=== PATIENT | male | born 1950 | race Caucasian/White ===

== ENCOUNTER 2022-03-01 16:13 | Emergency (ER) | payer MEDICARE, SELFPAY ==
--- NOTE | ~2022-03-01 | XR_ITS ---
EXAMINATION: XR wrist RT min 3V INDICATION: Right wrist pain and swelling TECHNIQUE: Four views of the right wrist are obtained. COMPARISON: None available FINDINGS: There is plate and screw fixation of the distal radius. There appears to be an acute obliqu e, nondisplaced fracture of the radial styloid. 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 There is soft tissue swelling of the wrist. IMPRESSION: 1. Probable acute nondisplaced fracture of the radial styloid. Reviewed, dictated and finalized at location [facility]
--- NOTE | 2022-03-01 16:18 | ED.UPPEXIN ---
HPI - Extremity Injury (Upper) General Chief Complaint: Extremity Injury, Upper Stated Complaint: right wrist injury Time Seen by Provider: 03/01/22 16:40 Source: patient, RN notes reviewed and old records reviewed Mode of arrival: ambulatory Limitations: no limitations History of Present Illness HPI narrative: 71-year-old male presents to the [facility] with right wrist pain. Has a history of a fixation of the distal radius due to a fracture. Patient states that he was feeling his tires with air when he fell forward on Monday, 2 days ago. Has had bruising, pain and swelling. Tenderness to the dorsal aspect right wrist. Swelling noted to the entire wrist Bruising noted to the volar aspect, patient is on Xarelto. Primary and orthopedic surgeon is located [facility]. Related Data Home Medications Medication Instructions Recorded Confirmed allopurinol 100 mg tablet mg 03/01/22 bupropion HCl 300 mg 24 hr tablet, mg PO 03/01/22 extended release calcitriol 0.25 mcg capsule mcg 03/01/22 cyclosporine 0.05 % eye drops in a drp 03/01/22 dropperette (Restasis) ezetimibe 10 mg tablet mg 03/01/22 irbesartan 300 mg tablet mg 03/01/22 metoprolol succinate 25 mg mg PO 03/01/22 tablet,extended release 24 hr mycophenolate sodium 180 mg mg PO 03/01/22 tablet,delayed release nitroglycerin 0.4 mg sublingual mg 03/01/22 tablet propafenone 150 mg tablet mg 03/01/22 propafenone 150 mg tablet mg 03/01/22 rivaroxaban 15 mg tablet (Xarelto) mg 03/01/22 rosuvastatin 40 mg tablet mg 03/01/22 sulfamethoxazole 400 tablet 03/01/22 mg-trimethoprim 80 mg tablet tacrolimus 0.5 mg capsule, mg 03/01/22 immediate-release tacrolimus 1 mg capsule, mg 03/01/22 immediate-release tamsulosin 0.4 mg capsule mg PO 03/01/22 Allergies Allergy/AdvReac Type Severity Reaction Status Date / Time Penicillins Allergy Mild Rash Unverified 03/01/22 16:16 Review of Systems Review of Systems: All systems reviewed & are unremarkable except as noted in HPI and below Constitutional: Constitutional: Reports no additional constitutional complaints Eyes: Eyes: Reports no additional eye complaints ENT: Reports system reviewed and no additional complaints, except as documented Cardiovascular: Cardiovascular: Reports no additional cardiovascular complaints, Denies chest pain and Denies dyspnea Respiratory: Respiratory: Reports no additional respiratory complaints, Denies chest congestion, Denies cough and Denies dyspnea Gastrointestinal: Gastrointestinal: Reports no additional gastrointestinal complaints, Denies abdominal pain, Denies nausea and Denies vomiting Musculoskeletal: Musculoskeletal: Reports as per HPI, Reports arthralgias (Right wrist) and Reports joint swelling (Right wrist) Integumentary/Breasts: Skin/Breast: Reports system reviewed and no additional complaints, except as docu Neurologic: Reports system reviewed and no additional complaints, except as documented Psychiatric: Psychiatric: Reports no additional psychiatric complaints Allergic/Immunologic: Allergic/Immunologic: Reports no additional allergic/immunologic complaints PMFSH Surgical History Surgical History History of kidney transplant Comments At the time of my signature, I reviewed and agree with the nursing past medical, surgical, social, and family history. There is no relevant family history pertinent to the patient complaint. Exam Const: General: cooperative, healthy appearing, comfortable, no acute distress, well developed, alert and well nourished Nutritional Appearance: well nourished and obese Orientation/consciousness: patient oriented x3 Limitations: no limitations HENMT: Head: normal to inspection Ears: hearing grossly normal bilaterally and external ears normal Face/Nose/Sinus: Normal external nose present, Normal nares present, Normal nasal mucous membranes and turbinate
[2022-03-01 16:21] VITALS: BP 166/86; PULSE 81; RESP 20; TEMP 37.2; O2SAT 97
== END 2022-03-01 17:46 | disposition home or self-care (01) ==
PROVIDERS: Emergency Provider Nurse Practitioner
DX: S52.511A Displaced fracture of right radial styloid process, initial encounter for closed fracture (principal); W19.XXXA Unspecified fall, initial encounter; Z79.01 Long term (current) use of anticoagulants; Z94.0 Kidney transplant status; I48.91 Unspecified atrial fibrillation; E78.00 Pure hypercholesterolemia, unspecified; I10 Essential (primary) hypertension
CPT/HCPCS: 29125; 73110; 99214; A4565; G0463